=== PATIENT | female | born 1970 | race Caucasian/White ===

== ENCOUNTER 2021-03-19 07:38 | Day surgery (SDC) | payer MEDICAID ==
[2021-03-16 11:37] LABS: BASOPHILS # (AUTO) 0.1 X10'3 (0-0.2); BASOPHILS % (AUTO) 1.5 % (0-1); EOSINOPHILS # (AUTO) 0.2 X10'3 (0-0.9); EOSINOPHILS % (AUTO) 4.1 % (0-6); LYMPHOCYTES # (AUTO) 1.7 X10'3 (1.1-4.8); LYMPHOCYTES % (AUTO) 33.6 % (21-51); MEAN CORPUSCULAR HEMOGLOBIN 28.6 PG (27.0-31.0); MEAN CORPUSCULAR VOLUME 86.6 FL (78-98); MEAN PLATELET VOLUME 8.4 FL (7.4-10.4); MONOCYTES # (AUTO) 0.4 X10'3 (0-0.9); MONOCYTES % (AUTO) 7.1 % (2-12); NEUTROPHILS # (AUTO) 2.8 X10'3 (1.8-7.7); NEUTROPHILS % (AUTO) 53.7 % (42-75); PRE OP HEMATOCRIT 39.9 % (35.0-45.0); PRE OP HEMOGLOBIN 13.2 g/dL (12.0-16.0); PRE OP PLATELET COUNT 304 X10'3 (140-440); RED CELL DISTRIBUTION WIDTH 13.6 % (11.5-14.5)
[2021-03-16 11:47] LABS: ALBUMIN/GLOBULIN RATIO 0.9 (1.1-1.5); ALKALINE PHOSPHATASE 82 IU/L (46-116); BLOOD UREA NITROGEN 10 MG/DL (7-18); BUN/CREATININE RATIO 16.9 (6.6-38.0); CALCIUM 9.1 MG/DL (8.5-10.1); CHLORIDE 104 MMOL/L (99-107); CREATININE 0.59 MG/DL (0.40-0.90); PRE OP ALT 34 U/L (30-65); PRE OP ANION GAP 8 (8-16); PRE OP AST 21 U/L (10-37); PRE OP BILIRUB, TOTAL 0.9 MG/DL (0.0-1.0); PRE OP GLUCOSE 106 MG/DL (70-104); PRE OP SODIUM 140 MMOL/L (135-145); TOTAL CARBON DIOXIDE 27.7 MMOL/L (24-32); TOTAL PROTEIN 8.4 G/DL (6.4-8.2); eGFR > 90 ML/MIN
[~2021-03-19] VITALS: Ht 160 cm; Wt 71.6 kg
[2021-03-19] VITALS (14 sets, daily range): BP systolic 114–145; BP diastolic 67–89
[~2021-03-19 07:38] MED LIST: CETI-90 PO; famotidine 20mg tablet PO ONE; ringers solution, lacted 1,000 ML IV SCH
[2021-03-19 09:33] LABS: URINE HCG NEGATIVE (NEG)
[2021-03-19] MEDS ORDERED: ROPIVAcaine 0.5% (5mg/ml) 30ml vial ONE (10:33)
[2021-03-19] MEDS ORDERED: fentaNYL/PF 50MCG/1 ML 2ML syringe IV PRN ×2 (10:40)
[2021-03-19] MEDS ORDERED: labetalol 20mg/4ml (5mg/ml) syringe IV PRN (10:40)
[2021-03-19] MEDS ORDERED: ringers solution, lacted 1,000 ML IV SCH (10:40)
[2021-03-19] MEDS ORDERED: morphine 2 MG/ML inj. syringe IV PRN (10:40)
[2021-03-19] MEDS ORDERED: morphine 4 MG/ML inj SYRINge IV PRN (10:40)
[2021-03-19] MEDS ORDERED: ondansetron/PF 4mg/2ml inj IV PRN (10:40)
[2021-03-19] MEDS ORDERED: hydrALAZINE 20mg/ml inj. IV PRN (10:40)
[2021-03-19] MEDS ORDERED: dexamethasone sod phosphate 10mg/ml inj IV ONE (10:45)
[2021-03-19] MEDS ORDERED: LIDOcaine 2% (20mg/ml) 5ml vial ONE ×2 (10:46→14:47)
[2021-03-19] MEDS ORDERED: propofol inj 20 ML IV ONE ×2 (10:46→14:47)
[2021-03-19] MEDS ORDERED: rocuronium 10mg/ml inj IV ONE ×2 (10:46→14:47)
[2021-03-19] MEDS ORDERED: glycopyrrolate 0.2mg/ml inj ONE ×2 (10:46→14:47)
[2021-03-19] MEDS ORDERED: fentaNYL/PF 50MCG/1 ML 2ML syringe ONE ×4 (10:46→14:17)
[2021-03-19] MEDS ORDERED: midazolam 1 mg/ML 2ml injection ONE ×2 (10:46→13:57)
[2021-03-19] MEDS ORDERED: ondansetron/PF 4mg/2ml inj ONE ×2 (10:46→14:47)
[2021-03-19] MEDS ORDERED: sevoflurane 250ml liquid IH ONE (10:47)
[2021-03-19] MEDS ORDERED: sodium bicarbonate (8.4%) inj. 1 MEQ/ML ML ONE (10:47)
[2021-03-19] MEDS ORDERED: oxyCODONE/APAP 5-325mg tablet PO PRN ×2 (11:40)
--- NOTE | 2021-03-19 11:45 | NUR ---
[facility], accompanied by Anesthesiologist IAIN and report given by Anesthesiolgist. PT IS DRWOSY, OXYGENATING WELL ON 10 LPM O2 VIA MASK, NO RESP DISTRESS NOTED. DENIES NAUSEA BUT C/O ABD PAIN 06/06. MEDICATED PRN, SEE EMAR. VSS. HUGHES FUR SCRAPER ASSISTING WITH TRANSLATION.
--- NOTE | 2021-03-19 13:14 | NUR ---
SANTIAGO PAD IN PLACE, SCANT SANG DRAINAGE
--- NOTE | 2021-03-19 14:00 | NUR ---
VSS, TOLERATING PO FLUIDS WELL. PAIN WELL CONTROLLED WITH MEDS GIVEN IN PACU. DC INSTRUCTIONS EXPLAINED TO PT AND HER SPOUSE, THEY VERBALIZED UNDERSTANDING. DCD IN STABLE CONDITION, TAKEN TO CAR VIA WC.
[2021-03-19] MEDS ORDERED: succinylcholine 20mg/ml inj IV ONE (14:47)
[2021-03-19] MEDS ORDERED: neostigmine methylsulfate 1 MG/ML 10ml vial ONE (14:47)
[2021-03-19] MEDS ORDERED: dexamethasone sod phosphate 4mg/ml inj. ONE (14:47)
== END 2021-03-19 14:00 | disposition home or self-care (01) ==
LOC: PAS 07:38
PROVIDERS: ATTEND Obstetrics & Gynecology
DX: R10.2 Pelvic and perineal pain (principal); R30.0 Dysuria; N85.8 Other specified noninflammatory disorders of uterus; N30.10 Interstitial cystitis (chronic) without hematuria; M19.90 Unspecified osteoarthritis, unspecified site; F32.9 Major depressive disorder, single episode, unspecified; E78.00 Pure hypercholesterolemia, unspecified; Z91.040 Latex allergy status; Z88.8 Allergy status to other drugs, medicaments and biological substances; Z79.899 Other long term (current) drug therapy; Z90.49 Acquired absence of other specified parts of digestive tract; Z20.822 Contact with and (suspected) exposure to COVID-19; Z98.890 Other specified postprocedural states; Z82.49 Family history of ischemic heart disease and other diseases of the circulatory system; Z83.3 Family history of diabetes mellitus
CPT/HCPCS: 36415; 51700; 52260; 58558; 80053; 81025; 82948; 85025; 86885; 86900; 86901; 93005; J1100; J2001; J2250; J2270; J2405; J2704; J2710; J3010; J7030; U0003; U0005; A4344; A4355; A4618; A6258; J0330; J2795; J3490; J7120

== ENCOUNTER 2021-03-21 04:08 | Emergency (ER) | payer MEDICAID ==
[~2021-03-21] VITALS: Ht 162.6 cm; Wt 65.9 kg
[~2021-03-21 04:08] MED LIST changes: -famotidine 20mg tablet PO ONE; -ringers solution, lacted 1,000 ML IV SCH
--- NOTE | 2021-03-21 04:29 | NUR ---
Dr. Hinojosafs bedside. on patient's phone translating Faroese to [place] Island[place].
[2021-03-21] MEDS ORDERED: normal saline 1000ML IV soln IVB ONE ×2 (04:35→05:50)
[2021-03-21] MEDS ORDERED: ondansetron/PF 4mg/2ml inj IV ONE (04:35)
[2021-03-21] MEDS: morphine 4 MG/ML inj SYRINge IV PRN ×2 (04:46→05:58)
[2021-03-21 04:58] LABS: BASOPHILS % (AUTO) 0.4 % (0-1); EOSINOPHILS # (AUTO) 0.1 X10'3 (0-0.9); EOSINOPHILS % (AUTO) 0.7 % (0-6); HEMATOCRIT 37.2 % (35.0-45.0); HEMOGLOBIN 12.5 g/dl (12.0-16.0); LYMPHOCYTES # (AUTO) 2.6 X10'3 (1.1-4.8); LYMPHOCYTES % (AUTO) 20.1 % (21-51); MEAN CORPUSCULAR HEMOGLOBIN 29.1 PG (27.0-31.0); MEAN CORPUSCULAR HGB CONC 33.7 g/dL (33.0-36.5); MEAN CORPUSCULAR VOLUME 86.3 FL (78-98); MEAN PLATELET VOLUME 8.1 FL (7.4-10.4); MONOCYTES # (AUTO) 0.9 X10'3 (0-0.9); NEUTROPHILS # (AUTO) 9.3 X10'3 (1.8-7.7); NEUTROPHILS % (AUTO) 71.8 % (42-75); PLATELET COUNT 318 X10'3 (140-440); RED BLOOD COUNT 4.31 X10'6 (4.20-5.60); RED CELL DISTRIBUTION WIDTH 13.9 % (11.5-14.5)
[2021-03-21 05:14] LABS: ALANINE AMINOTRANSFERASE 71 U/L (12-78); ALBUMIN 3.9 G/DL (3.4-5.0); ALKALINE PHOSPHATASE 84 IU/L (46-116); ANION GAP 11 (8-16); ASPARTATE AMINO TRANSFERASE 28 U/L (10-37); BLOOD UREA NITROGEN 15 MG/DL (7-18); CALCIUM 8.4 MG/DL (8.5-10.1); CHLORIDE 104 MMOL/L (99-107); CREATININE 0.79 MG/DL (0.40-0.90); GLUCOSE 117 MG/DL (70-104); POTASSIUM 3.8 MMOL/L (3.5-5.1); SODIUM 142 MMOL/L (135-145); TOTAL CARBON DIOXIDE 27.4 MMOL/L (24-32); eGFR 77 ML/MIN
[2021-03-21] MEDS ORDERED: HYDR-3965 PO (05:56)
[2021-03-21 05:57] LABS: COLOR,URINE YELLOW (Yellow); GLUCOSE, URINE NEGATIVE (Neg); KETONES,URINE NEGATIVE (Neg); LEUKOCYTE ESTERASE ,URINE MODERATE (Neg); OCCULT BLOOD,URINE LARGE (Neg); PROTEIN,URINE 30 mg/dl (Neg)
[2021-03-21] MEDS ORDERED: PHEN-786 PO (05:59)
[2021-03-21 06:02] LABS: UA COLLECTION TYPE CLN CATCH MIDSTREAM
[2021-03-21 06:03] LABS: CLARITY,URINE SLIGHTLY CLOUDY (Clear); NITRITES, URINE NEGATIVE (Neg)
[2021-03-21 06:04] LABS: BACTERIA,URINE FEW /HPF (Neg); SQUAMOUS EPITHELIAL CELL,UR FEW /LPF (FEW); WBC CLUMPS,URINE FEW /HPF (NEGATIVE)
[2021-03-21] MEDS ORDERED: CEPH-585 PO (06:07)
[2021-03-21] MEDS ORDERED: CefTRIAXone 2gm/D5W 50ml BAG 50 ML IV ONE (06:15)
[2021-03-21 07:19] VITALS: BP 102/67
== END 2021-03-21 07:49 | disposition home or self-care (01) ==
LOC: ER 04:08
DX: N39.0 Urinary tract infection, site not specified (principal); Z88.6 Allergy status to analgesic agent; Z91.040 Latex allergy status; Z79.899 Other long term (current) drug therapy
CPT/HCPCS: 36415; 80053; 81001; 84145; 85025; 87088; 87186; 96361; 96374; 96375; 96376; 99284; J0696; J2270; J2405; J7030; 87077